=== PATIENT | male | born 1945 | race Caucasian/White ===

== ENCOUNTER → 2019-01-30 | Day surgery (SDC) | payer MEDICARE ==
[2019-01-26 11:51] LABS: BASOPHILS % 0.6 % (0.0-1.0); EOSINOPHILS # (AUTO) 0.2 (0.0-0.4); EOSINOPHILS % 2.4 % (0.0-6.0); HEMATOCRIT 40.9 % (38.2-49.6); HEMOGLOBIN 13.9 g/dL (14.0-18.0); LYMPHOCYTES # (AUTO) 1.5 (1.0-3.2); LYMPHOCYTES % 24.2 % (18.0-39.1); MEAN CORPUSCULAR HEMOGLOBIN 29.2 pg (28-32); MEAN CORPUSCULAR VOLUME 85.9 fL (81-99); MONOCYTES # (AUTO) 0.7 (0.2-0.8); NEUTROPHILS # (AUTO) 3.8 (2.1-6.9); NEUTROPHILS % 61.2 % (38.7-80.0); PLATELET COUNT 186 x10e3/uL (140-360); RED BLOOD COUNT 4.76 x10e6/uL (4.3-5.7); RED CELL DISTRIBUTION WIDTH 13.6 % (11.7-14.4)
--- NOTE | 2019-01-26 12:26 | Diagnostic Imaging Report ---
EXAMINATION: PA and lateral views of the chest. COMPARISON: None CLINICAL HISTORY: Preoperative for biopsy DISCUSSION: The lungs are well-inflated. Faint nodular opacity projecting over the posterior right sixth rib. No airspace consolidation, pleural effusion, or pneumothorax. Cardiomediastinal contour and pulmonary vasculature are within normal limits. No acute osseous abnormality. IMPRESSION: No acute cardiopulmonary abnormality. Right midlung nodular opacity projecting over the sixth rib which may represent a bone island within the rib or a pulmonary nodule. In the absence of prior chest radiographs for comparison purposes, a short-term follow-up chest radiograph (8-12 weeks) is suggested to document stability. Alternatively, CT scan of the chest may be performed. Signed by: Dr. Agustín Bender M.D. on 01/26/2019 12:22 PM
[~2019-01-30] MED LIST: ACETAMINOPHEN 1000 MG/100 ML IV ONE; ASPIR 8181 MG PO; ATORVASTATIN CA20 MG PO; BUPIVACAINE 0.5%/EPI 30 ML SDV INJ ONE; DEXAMETHASONE SOD PHOS INJ 4 MG/ML VIAL ONE; EPINEPHRINE HCL 1:1000 1ML 1 MG/ML AMP ONE; FENTANYL CITRATE/PF 100MCG/2 ML INJ ONE; FOLIC ACID1 MG PO; LIDOCAINE 1% W/EPINEPHRINE 20 ML VIAL ONE; LIDOCAINE HCL 2% LOCAL INJ 5 ML SDV VIAL INJ ONE; MIDAZOLAM HCL 2 MG/2 ML VIAL ONE; MULTI-VITAMIN1 EACH PO; ONDANSETRON HCL INJ 2MG/ML 2ML 2 MG/ML VIAL ONE; OXYMETAZOLINE HCL 0.05% NAS 1 SPRAY BTL ONE; PROPOFOL IV EMULSION 10 MG/ML 20 ML VIAL ONE; RAMIPRIL5 MG PO; ROCURONIUM BROMIDE 10 MG/ML 5ML VIAL ONE; SEVOFLURANE INHAL SOLN 250 ML PEN BTL ONE; TESTOSTERO200 MG/11 INJ; VIT B PO; VIT C PO; XARELTO20 MG PO; [UNRECOGNIZED DRUG - OTHER] PO
--- OUTSIDE RECORDS SUMMARY | 2019-01-30 08:26 | XMS REPORT ---
[facility] Address Unknown Phone Unavailable Care Team Providers Care Instrument Installer Name Role Phone Inés ROSADO Unavailable Unavailable Problems This patient has no known problems. Allergies, Adverse Reactions, Alerts This patient has no known allergies or adverse reactions. Medications This patient has no known medications. Results Test Description Test Time Test Comments Text Results Atomic Results Result Comments CHEST 2 VIEWS 2019-01-26 12:20:00 [place] [address] Patient Name: OFELIA GONZALEZ MR #: [id number] : 1945 Age/Sex: 73/M Req #: [id number] Adm Physician: Ordered by: LESLIE ROSADO MD Report #: [id number] Location: OR Room/Bed: Procedure: [id number] DX/CHEST 2 VIEWS Exam Date: 01/26/19 Exam Time: 1137 REPORT STATUS: Signed EXAMINATION: PA and lateral views of the chest. CO MPARISON: None CLINICAL HISTORY: Preoperative for biopsy DISCUSSION: The lungs are well-inflated. Faint nodular opacity projecting over the posterior right sixth rib. No airspace consolidation, pleural effusion, or pneumothorax. Cardiomediastinal contour and pulmonary vasculature are within normal limits. No acute osseous abnormality. IMPRESSION: No acute cardiopulmonary abnormality. Right midlung nodular opacity projecting over the sixth rib which may represent a bone island within the rib or a pulmonary nodule. In the absence of prior chest radiographs for comparison purposes, a short-term follow-up chest radiograph (8-12 weeks) is suggested to document stability. Alternatively, CT scan of the chest may be performed. Signed by: Dr. Mandeep Mansfield M.D. on 01/26/2019 12:22 PM Dictated By: MANDEEP MANSFIELD MD 1222 Transcribed By: SAMINA on 01/26/19 1222 COPY TO: LESLIE ROSADO MD
--- OUTSIDE RECORDS SUMMARY | 2019-01-30 08:26 | XMS REPORT | Clinical Summary ---
Author Author [facility] Address Unknown Phone Unavailable Care Team Providers Care Glove Former Name Role Phone King Saucedo MD PCP Allergies Not on File Medications Not on file Active Problems Not on file Social History Date Tobacco Use Types Packs/Day Years Used Never Assessed Sex Assigned at Date Recorded Not on file Industry Job Start Date Occupation Not on file Not on file Not on file Travel End Travel History Travel Start No recent travel history available. Last Filed Vital Signs Not on file Plan of Treatment Health Maintenance Due Date Last Done Comments COLONOSCOPY SCREENING 1995 SHINGLES VACCINES (#1) 1995 65+ PNEUMOCOCCAL VACCINE 2010 (1 of 2 - PCV13) INFLUENZA VACCINE 03/01/2019 Results Not on fileafter 01/29/2018 Advance Directives Patient has advance care planning documents on file. For more information, swetha watkins contact: Joey Muñoz [address] [place] [address]
[2019-01-30 09:22] LABS: INR 1.02; PROTHROMBIN TIME 13.9 seconds (11.9-14.5)
[2019-01-30 09:31] LABS: ALANINE AMINOTRANSFERASE 24 IU/L (0-55); ALBUMIN 3.6 g/dL (3.5-5.0); ALBUMIN/GLOBULIN RATIO 1.1 (0.8-2.0); ALKALINE PHOSPHATASE 103 IU/L (40-150); ANION GAP 12.2 mmol/L (8-16); BLOOD UREA NITROGEN 20 mg/dL (7-26); BUN/CREATININE RATIO 19 (6-25); CALCIUM 9.9 mg/dL (8.4-10.2); CARBON DIOXIDE 27 mmol/L (22-29); CHLORIDE 106 mmol/L (98-107); CREATININE, SERUM 1.05 mg/dL (0.72-1.25); EST GLOMERULAR FILTRATION RATE > 60 ML/MIN (60-); GLUCOSE 101 mg/dL (74-118); POTASSIUM 4.2 mmol/L (3.5-5.1); SODIUM 141 mmol/L (136-145)
[2019-01-30 14:05] VITALS: BP 130/73
--- NOTE | 2019-02-05 10:19 | Operative Report ---
DATE OF PROCEDURE: 01/30/2019 SURGEON: Wyatt Westfall MD CHIEF COMPLAINT: Right neck mass. POSTOPERATIVE DIAGNOSIS: Right neck mass. OPERATIVE PROCEDURE: Direct laryngoscopy, rigid esophagoscopy, rigid bronchoscopy, microlaryngoscopy, biopsy of the right AE fold, biopsy of the right piriform sinus both medial wall and at the apex, biopsy of the vallecula in the midline, biopsy of left piriform sinus, fine-needle aspiration of posterior triangle mass on the right side both anterior and posterior approach. ANESTHESIA: Anesthesiology group. INDICATIONS: This 73-year-old male has a six months' history of right posterior triangle mass. The patient notified his physician recently and a CT scan of the neck without contrast was performed, which showed that the patient has a right neck cluster of lymph node and also a questionable lesion in the piriform sinus on the right side. On examination prior to surgery, there was a question of increase lesion on the right AE fold. The patient has no hoarseness, no dysphagia, odynophagia, or shortness of breath. The patient denies any sore throat or otalgia. The right neck mass was palpable in the posterior triangle, in the inferior portion of the neck just underneath the SCM. It was decided that panendoscopy microlaryngoscopy, FNA of the right neck mass and other necessary procedure will be beneficial for him. PROCEDURE IN DETAIL: The patient was taken to the operating room, put under general anesthesia, endotracheally intubated. The patient was positioned. A rigid esophagoscopy was performed. Esophagoscope was passed through the cricopharyngeus. The cricopharyngeus muscle was entered and the esophagus was examined to about 25 cm from the incisor, no abnormality was noted. The esophagoscope was retrieved. The rigid bronchoscopy was performed. A size #4 bronchoscope with Walter wire was used. The bronchoscope was passed parallel to endotracheal tube, endotracheal tube cuff was deflated, trachea was examined down to roly, no abnormality was noted. The bronchoscope was retrieved, endotracheal tube cuff was reinflated. The direct laryngoscopy was performed. The Dedo laryngoscope was used. The oropharynx and oral cavity were examined, no obvious abnormality was noted. The piriform sinus on either side was examined. A lot of redundant tissue was noted in the piriform sinus on the right side, but no obvious lesion was noted. The larynx was examined, both the true and false vocal folds were examined, no abnormality was noted. A microlaryngoscopy was performed. The laryngoscope was put on suspension and operating microscope was brought in. The larynx was examined. First, the AE fold on the right side was biopsied and sent for frozen section. Attention was shifted to the right piriform sinus. Again, the medial wall of the piriform sinus and the anterior wall of the piriform sinus on the right side was biopsied again and sent for frozen section. Increased lymphoid tissue also was noted in the vallecula area, midline tongue base, this was also biopsied and sent for permanent section. The left piriform sinus was examined, no obvious abnormality was noted. Because of the patient's history, left piriform sinus was also biopsied. The frozen section returned, after discussion with Dr. Smith, no obvious malignancy was noted. The fine-needle aspiration of the right posterior triangle mass was undertaken. The FNA was done both from the anterior to the SCM and also separate attempt in the posterior approach to the SCM, both were sent for cytology. The patient tolerated the above procedure well with minimal blood loss. He was given 20 mg of Decadron intraoperatively. The patient was able to be transferred to recovery room in stable condition. MD LISANDRO Dailey/THOMAS /[id number]
--- NOTE | 2019-02-05 11:55 | Pre Op History & Physical ---
DATE OF SURGERY: January 30, 2019. CHIEF COMPLAINT: Right neck mass and questionable lesion in the pyriform sinus. HISTORY OF PRESENT ILLNESS: This 73-year-old male was noted to have a right neck mass for the past 6 months. The patient on his visit with Dr. aSucedo, his family doctor subsequently ordered a CT scan of the neck, which showed that the patient has a large level 2 lymph node on the right side with questionable lesion in the right pyriform sinus area. The patient denies any dysphagia, odynophagia, or hoarseness. The patient has no choking. The patient denies any throat pain. He is a nonsmoker, but is a social drinker. REVIEW OF SYSTEMS: Showed no recent cardiovascular, respiratory, or GI problem. PAST MEDICAL HISTORY: The patient has a history of atrial fibrillation and hypertension. PAST SURGICAL HISTORY: He had a previous left shoulder surgery and bunionectomy. ALLERGIES: HE IS ALLERGIC TO PENICILLIN, WHICH WOULD GIVE HIM HIVES. MEDICATIONS: He is on Xarelto, ramipril, and atorvastatin. SOCIAL HISTORY: He is a nonsmoker and a social drinker. FAMILY HISTORY: Noncontributory. PHYSICAL EXAMINATION: VITAL SIGNS: On examination, the patient's vital signs were within normal limits. HEENT: Ear exam showed normal tympanic membranes bilaterally. Nasal exam showed no obvious abnormality. Nasal endoscopy showed the patient has mobile vocal folds bilaterally with a lesion in his AE fold on the right side. Pyriform sinus could not be seen properly. No other lesion was noted in the hypopharynx. Oropharynx and oral cavity showed no obvious abnormality. NECK: Showed right jugulodigastric mass about 3 cm. No thyroid was palpable. CHEST: Showed good air entry bilaterally. CARDIOVASCULAR: Showed S1 and S2. No murmur noted. ELECTRICAL APPLIANCE REPAIRER: Showed cranial nerves II through XII were within normal limits. ASSESSMENT AND PLAN: Mr. 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 The suggested treatment is panendoscopy, microlaryngoscopy, biopsy of the pyriform sinus and AE fold lesion and fine-needle aspiration of the right neck mass and other necessary procedure. Complication of procedure includes, but not limited to bleeding, infection, perforation of the esophagus, immediate sinusitis, airway compromise, persistent recurrence of the problem. I have discussed with the patient that because of the supraglottic mass there is a possibility if his airway is compromised, he might require a tracheostomy. The alternative will be continued observation, continued antibiotic therapy, repeat flexible laryngoscopic exam and fine-needle aspiration of the neck mass. The patient has elected to undergo surgical procedure. MD LISANDRO Dailey/MODL /[id number] cc: King Saucedo MD
== END | disposition home or self-care (01) ==
LOC: OR 08:24
PROVIDERS: ATTEND Otolaryngology Otolaryngology/Facial Plastic Surgery
DX: R22.1 Localized swelling, mass and lump, neck (principal); R07.0 Pain in throat; I45.10 Unspecified right bundle-branch block; H91.90 Unspecified hearing loss, unspecified ear; I10 Essential (primary) hypertension; I48.91 Unspecified atrial fibrillation; F41.9 Anxiety disorder, unspecified; Z01.812 Encounter for preprocedural laboratory examination; Z01.818 Encounter for other preprocedural examination; Z79.02 Long term (current) use of antithrombotics/antiplatelets; Z79.82 Long term (current) use of aspirin; Z87.891 Personal history of nicotine dependence; Z88.0 Allergy status to penicillin
CPT/HCPCS: 10021; 31536; 31622; 36415 ×2; 43191; 71046; 80053; 85025; 85610; 85730; 88305; 88331; J0131; J0171; J1100; J2001; J2250; J2405; J2704; 88304; J3010